=== PATIENT | female | born 1955 | race Hispanic/Latino ===

== ENCOUNTER 2018-04-01 10:11 | Day surgery (SDC) | payer OTHER ==
[~2018-04-01] VITALS: Ht 167.6 cm; Wt 74.9 kg
[~2018-04-01 10:11] MED LIST: CALC600T12 PO; FURO20TA4 PO; LEVO50TA11 PO; MULT-1203 PO; MV-M1TAB20 PO; POTA20TA12 PO; SODIUM CHLORIDE 0.9% 1000ML 1,000 ML IV ONE; SPIR100T PO; VITA2500 PO
[2018-04-01 11:00] VITALS: BP 117/68
[2018-04-01] MEDS ORDERED: LACT10SO PO (11:28)
[2018-04-01] MEDS ORDERED: PROPOFOL 10 MG/ML 20ML VIAL IV ONE (11:42)
[2018-04-01 11:53] VITALS: BP 101/66
[2018-04-01 11:59] VITALS: BP 108/67
[2018-04-01 12:03] VITALS: BP 106/67
== END 2018-04-01 12:37 | disposition home or self-care (01) ==
LOC: ENDO 10:11 → DAH 10:11 → ENDO 12:37
PROVIDERS: ATTEND Internal Medicine Gastroenterology
DX: I85.00 Esophageal varices without bleeding (principal); K29.50 Unspecified chronic gastritis without bleeding; K25.9 Gastric ulcer, unspecified as acute or chronic, without hemorrhage or perforation; K31.89 Other diseases of stomach and duodenum; I10 Essential (primary) hypertension; E11.9 Type 2 diabetes mellitus without complications; B18.2 Chronic viral hepatitis C; M81.0 Age-related osteoporosis without current pathological fracture; K70.30 Alcoholic cirrhosis of liver without ascites; Z79.899 Other long term (current) drug therapy
CPT/HCPCS: 43239; 82948; A4606; J2704; J7030

== ENCOUNTER → 2020-05-04 | Outpatient (CLI) | payer OTHER ==
[~2020-05-04] MED LIST changes: -CALC600T12 PO; +CALC600T15 PO; +LACT10SO PO; -SODIUM CHLORIDE 0.9% 1000ML 1,000 ML IV ONE
== END | disposition home or self-care (01) ==
LOC: DAH 10:00 → EDSTATUS 05-10 13:29
PROVIDERS: ATTEND Internal Medicine Gastroenterology
DX: Z20.828 Contact with and (suspected) exposure to other viral communicable diseases (principal)
CPT/HCPCS: C9803; U0003